=== PATIENT | male | born 1985 | race African-American/Black ===

== ENCOUNTER 2023-01-12 14:46 | Emergency (ER) | payer OTHER ==
[2023-01-12 15:12] VITALS: BP 121/77; PULSE 94; RESP 18; TEMP 98.2; BMI 30.5
== END 2023-01-12 16:50 | disposition home or self-care (01) ==
LOC: EDSEX → JER 14:46 → JERFT 14:46
DX: B08.4 Enteroviral vesicular stomatitis with exanthem (principal); R21 Rash and other nonspecific skin eruption
CPT/HCPCS: 99282-25